=== PATIENT | female | born 1975 | race Two or more races ===

== ENCOUNTER 2024-12-31 12:57 | Emergency (ER) | payer MEDICAID, SELFPAY ==
[2024-12-31 13:05] VITALS: O2SAT 92
--- NOTE | 2024-12-31 13:08 | EDNOTE_ITS ---
ED Allergic Reaction RME/HPI General Chief complaint: Allergic Reaction Stated complaint: BEE STING ALLERGIC Time Seen by Provider: 12/31/24 13:08 Arrival date/time: 12/31/24 12:57 RME / HPI RME / HPI narrative: 49-year-old female here for evaluation of allergic reaction to bee sting that occurred about 30 minutes prior to arrival to left hand. Notes feeling of mild shortness of breath, slight swelling to throat/tongue, and generalized rash. Related Data Previous Rx's ?Medication ?Instructions ?Recorded docusate sodium 100 mg capsule 100 mg PO BID #40 caps 05/27/18 hydrocodone 5 mg-acetaminophen 325 1 tab PO Q6H PRN pa in #20 tabs 05/27/18 mg tablet ([place]) epinephrine 0.3 mg/0.3 mL 0.3 mg (0.3 mL) subcut Q20M PRN 12/31/24 injection syringe anaphylaxis #2 ea Allergies Allergy/AdvReac Type Severity Reaction Status Date / Time No Known Allergies Allergy Verified 12/31/24 12:59 Review of Systems Review of Systems Systems Reviewed: All systems reviewed, normal except as documented Past Medical History Past Medical History GASTROINTESTINAL: Positive Gastrointestinal Disorders Social History SMOKING STATUS: Never smoker SECOND HAND EXPOSURE: No ED Exam Narrative Physical exam: Constitutional: Awake, alert, uncomfortable. HEENT: Normocephalic, atraumatic, extraocular movements intact, there is mild swelling present to tongue.. Neck: Supple CV: Tachycardic rate and regular rhythm, no murmurs/rubs/gallops Lungs: Clear to auscultation BL, mildly tachypneic, increased upper airway sounds. Extremities: No deformities, no edema noted Neuro: AAOx3, no acute neuro deficit noted. Skin: Generalized erythematous urticarial rash Course Course Course Narrative: 1800h: checked on patient, much improved, resolution of all symptoms. Stable for discharge home at this time. Given prescription for EpiPen for home and instructions on returning for worsening symptoms. Quality Measures none Orders Category Date Time Status Insert IV NOW Care 12/31/24 13:08 Active DiphenhydrAMINE INJ [Benadryl Inj] Med 12/31/24 13:08 Discontinued 50 mg IVP X1 ONE EPINEPHrine Inj [Adrenalin Inj] Med 12/31/24 13:06 Discontinued 0.3 mg SC X1 ONE Famotidine Inj [Pepcid Inj] Med 12/31/24 13:08 Discontinued 20 mg IVP X1 ONE MethylPREDNISolone.* [SoluMEDROL Inj] Med 12/31/24 13:08 Discontinued 125 mg IVP X1 ONE Vital Signs Vital signs: Vital Signs Pulse Oximetry (%) 92 L 12/31/24 13:05 Oxygen Delivery Method Room Air 12/31/24 13:05 Allergic Reaction MDM Narrative MDM Narrative:: Bella Shi am scribing for and in the presence of Dr. Vinson. Patient data External records reviewed:: [facility] previous records Clinical information provided by:: patient Social determinants that could affect healthcare access:: none Patient has the following chronic illnesses:: None reported How is presenting disease/condition affected by chronic disease/condition?: no chronic disease Evaluation data The following diagnostics were reviewed and interpreted by me:: other (specify) (No diagnostics ordered ) Lab and/or radiology exams considered but not ordered:: None Interpretation Summary: N/A Medications / Prescriptions Medications or Prescriptions considered but not ordered:: None Medication administrations:: Medication Administration History Discontinued Medications Diphenhydramine HCl (Diphenhydramine Inj 50 Mg/Ml Vial) 50 mg IVP X1 ONE Stop: 12/31/24 13:09 Last Admin: 12/31/24 13:14 Dose: 50 mg Documented By: JIA Epinephrine HCl (Epinephrine Inj 1 Mg/Ml Amp) 0.3 mg SC X1 ONE Stop: 12/31/24 13:07 Last Admin: 12/31/24 13:12 Dose: 0.3 mg Documented By: JIA Famotidine (Famotidine Inj 10 Mg/Ml Vial 2 Ml) 20 mg IVP X1 ONE Stop: 12/31/24 13:09 Last Admin: 12/31/24 13:15 Dose: 20 mg Documented By: VL Methylprednisolone Sodium Succinate (Methylprednisolone Sod Succ 62.5 Mg/Ml 2ml Vial) 125 mg IVP X1 ONE Stop: 12/31/24 13:09 Last Admin: 12/31/24 13:14 Dose: 125 mg Documented By: VL See above Consultations Consultation(s) initiated? (list below): No Diagnosis Differential Diagnosis allergic reaction: anaphylaxis, allergic reaction and angioedema Most likely diagnosis given after review of the tests above:: Anaphylaxis to bee sting Admission Indicated Admission indicated?: not indicated Admission Request Was there a request for admission?: No Disposition Plan Disposition Plan: Discharge Discharge Attestation Discharge Attestation: The patient and all family members were given an opportunity to ask questions and understood the discharge instructions. Discharge instructions specifically effects, indications for sooner follow up or return to the emergency department, and the expected course of current diagnosis. Patient condition: Stable Discharge Plan Plan Patient Disposition: HOME (Self Care) Patient condition on transfer: Stable Prescriptions/Referrals Prescriptions/Med Rec: New epinephrine 0.3 mg/0.3 mL syringe 0.3 mg subcut Q20M PRN (Reason: anaphylaxis) Qty: 2 0RF Rx Instructions: not to exceed 6 doses per episode No Action docusate sodium 100 mg Capsule 100 mg PO BID Qty: 40 0RF hydrocodone-acetaminophen [[place]] 5-325 mg tablet 1 tab PO Q6H MDD 4 PRN (Reason: pain) Qty: 20 0RF Referrals: Reji Stover MD [Primary Care Provider, Family Practice] - In 1 week Problem List Clinical Impression: Anaphylactic reaction to bee sting Patient/Caregiver Discharge Instructions Education Materials: ED BEE STING General Allergic Rxn, ED Anaphylaxis Additional Instructions: Some general health principles that can help you are the [employer] [place] principles: Nutrition (eat a plant-based diet, avoiding meats in general, avoiding highly processed foods) Exercise (Daily exercise/walks as tolerated) Water (Drink adequate fresh water to maintain hydration, concentrating on water rather than on soda, coffee, tea, juice, etc for hydration) [place] (Spend time - 15-20 minutes or so with skin exposed in the [employer] and late evening sun for Vitamin D health benefits) [place] (Avoid alcohol, illicit drugs, caffeinated beverages, smoking, etc) Air (Deep breathing exercises in the early mornings in fresh air) Rest (Adequate rest at night, going to bed a few hours before midnight and avoiding all screens/television/loud music in the time right before going to bed, also avoiding heavy meals just prior to going to bed) Trust in God (Spend time daily in Bible study and prayer - health benefits in contemplation of God's true character) Additional resources that can benefit: [email or web address], look under resources and seminars. Print Language: Syriac Stand Alone Forms: Stephanie Award Info., Patient Portal Info Letter
[2024-12-31 13:12] VITALS: BP 133/87; PULSE 113
[2024-12-31] MEDS: EPINEPHrine INJ 1 MG/ML AMP 0.3 MG SC (13:12)
[2024-12-31] MEDS: MethylPREDNISolone SOD SUCC 62.5 MG/ML 2ML VIAL 125 MG IVP (13:14)
[2024-12-31] MEDS: FAMOTIDINE INJ 10 MG/ML VIAL 2 ML 20 MG IVP (13:15)
[2024-12-31 13:38] VITALS: BP 124/87; PULSE 78; RESP 18; O2SAT 96
[2024-12-31 17:32] VITALS: BP 135/87; PULSE 86; RESP 16; O2SAT 97
[2024-12-31 18:05] VITALS: BP 138/79; PULSE 90; RESP 19; O2SAT 96
== END 2024-12-31 18:11 | disposition home or self-care (01) ==
PROVIDERS: Emergency Provider Family Medicine; PCP Family Medicine
DX: T63.441A Toxic effect of venom of bees, accidental (unintentional), initial encounter (principal); T78.2XXA Anaphylactic shock, unspecified, initial encounter
CPT/HCPCS: 96372; 96374; 96375; 99283; J0166; J1200; J2919; J3490